=== PATIENT | male | born 1995 | race Caucasian/White ===

== ENCOUNTER 2020-01-30 07:07 | Outpatient (REF) | payer OTHER, SELFPAY | END 2020-01-30 07:08 | disposition home or self-care (01) | LOC: HO.LAB 07:07 | PROVIDERS: Visit Provider Internal Medicine | DX: Z20.828 Contact with and (suspected) exposure to other viral communicable diseases (principal) | CPT/HCPCS: C9803; U0003 ==

== ENCOUNTER 2020-02-18 13:57 | Outpatient (REF) | payer OTHER, SELFPAY | END 2020-02-18 13:58 | disposition home or self-care (01) | LOC: HO.LAB 13:57 | PROVIDERS: Visit Provider Internal Medicine | DX: Z20.828 Contact with and (suspected) exposure to other viral communicable diseases (principal) | CPT/HCPCS: C9803; U0003 ==

== ENCOUNTER 2025-02-22 09:40 | Outpatient (AMB) | payer BC, SELFPAY ==
--- NOTE | 2025-02-22 10:37 | AM.OFFWIN_ITS ---
Intake Vital Signs 02/22/25 10:40 Height 5 ft 6 in BP 122/88 Blood Pressure Location Lt brachial Position Sitting Pulse 62 Pulse Source Pulse Oximeter Temp 97.6 F Temp Source Oral Pulse Oximetry (%) 98 Oxygen Delivery Method Room Air Intake Visit Reasons: [employer]-rt eye stye Intake Note: Patient presents c/o stye in right eye x1 month. Patient Tobacco Use Status: Never used Tobacco Allergies house dust Allergy (Intermediate, Verified 02/22/25 11:27) Headache Seasonal Allergies Allergy (Intermediate, Verified 02/22/25 11:27) Itchy Eyes HPI HPI Comments History of Present Illness Details 30-year-old male presents with a right u pper eyelid stye persisting for 1 month. Reports applying warm compresses with good relief. Now notes mild skin irritation on the outer layer of the lower eyelid due to excessive tearing and itching. Denies vision changes, dizziness, headaches, pain, or recent URI symptoms. PFSH Medical History (Updated 02/22/25 @ 11:32 by Kusum Connolly NP) Stye external Hypermobile joints Graves disease ADHD PTSD (post-traumatic stress disorder) Bipolar disorder Depression Anxiety Hx of radioactive iodine thyroid ablation Surgical History (Updated 02/22/25 @ 11:27 by Carmen Myrick) H/O mastectomy History of cochlear implant Family History (Updated 04/19/23 @ 10:03 by Nely Chacon [facility]) Mother Psychiatric disorder Maternal Grandmother Psychiatric disorder Paternal Grandmother Diabetes Maternal Grandfather Psychiatric disorder Family/Other Psychiatric disorder Paternal Grandfather Prostate cancer Paternal Aunt Breast cancer Maternal Uncle Skin cancer Other Mental health disorder Social History Patient Tobacco Use Status: Never used Tobacco Review of Systems Const All systems reviewed & are unremarkable except as noted in HPI and below Physical Exam Vital Signs: Last Vital Signs Temp 97.6 F 02/22/25 10:40 Pulse 62 02/22/25 10:40 BP 122/88 02/22/25 10:40 Pulse Ox 98 02/22/25 10:40 Oxygen Delivery Method Room Air 02/22/25 10:40 Const General: no acute distress Nutritional Appearance: obese Orientation/consciousness: patient oriented x3 Eyes Other: Right upper eyelid: visible very small stye. Lower eyelid: mild erythema and irritation of the skin. No discharge noted at time of examination. Visual acuity intact, pupils equal and reactive. No periocular swelling beyond stye. Conjunctivae: conjunctivae normal Corneas: corneas normal Pupils: Equal, round and reactive pupils present EOM: EOMs intact bilaterally Neuro General: patient oriented x3 Cranial nerves: Yes Equal, round and reactive pupils present Assessment & Plan Assessment & Plan (1) Stye external: Code(s): H00.019 - Hordeolum externum unspecified eye, unspecified eyelid Plan: Right upper eyelid stye (hordeolum) ? persistent. Non infected. No need for Abx now. Mild irritant dermatitis of the lower eyelid secondary to tearing/itching. Continue warm compresses 3?4 times daily for stye. Gentle cleansing with hypoallergenic soap or baby shampoo. Avoid rubbing or scratching the area. Ordered a low-potency topical corticosteroid. Advised not to apply inside eye. Advised to call PCP for f/u and Establish care with an eye doctor. Medications: New hydrocortisone 1% APPLY A THIN LAYER ON THE OUTSIDE LOWER EYELID THREE TIMES A DAY. 1 appl topical TID 28.4 grams 0RF skin irritation H00.019 - Hordeolum externum unspecified eye, unspecified eyelid Coding Level of Care Code New Pt Level 4 (23402) Diagnoses Stye external H00.019 Time Spent (min) 20
[2025-02-22 10:40] VITALS: BP 122/88; PULSE 62; TEMP 36.4; O2SAT 98
== END 2025-02-22 11:44 | disposition home or self-care (01) ==
PROVIDERS: Visit Provider Nurse Practitioner Family
DX: H00.019 Hordeolum externum unspecified eye, unspecified eyelid (principal)